=== PATIENT | male | born 1970 | race Caucasian/White ===

== ENCOUNTER 2017-08-26 20:49 | Observation (INO) | payer MEDICAID ==
[2017-08-26] MEDS ORDERED: ASPIRIN 81 MG CHEWABLE TABLET PO ONE (21:12)
[2017-08-26 21:16] LABS: BASO % 0.6 % (0-6); EOS % 5.5 % (0-6); GRAN % 61.9 % (47-80); HEMATOCRIT 43.2 % (42.0-52.0); HEMOGLOBIN 14.1 gm/dl (14.0-18.0); LYMPH % 23.4 % (16-45); MEAN CELL VOLUME 90.4 fl (81-97); MEAN CORPUSCULAR HEMOGLOBIN 29.5 pg (27-33); MEAN CORPUSCULAR HGB CONC 32.6 g/dl (32-36); MEAN PLATELET VOLUME 10.1 fl (7.4-10.4); MONO % 8.6 % (0-9); PLATELET COUNT 217 K/uL (130-400); RED BLOOD COUNT 4.78 M/uL (4.40-5.70); RED CELL DISTRIBUTION WIDTH 12.1 % (11.5-14.5); WHITE BLOOD COUNT W/O DIFF 5.3 K/uL (4.2-12.2)
[2017-08-26] MEDS: NITROGLYCERIN 0.4MG SL TABLET #25 BTL SL PRN ×3 (21:21→21:32)
[2017-08-26 21:26] LABS: ALB/GLOB RATIO 1.9 (1.1-1.8); ALBUMIN 4.1 g/dL (4.0-5.0); ALKALINE PHOSPHATASE 95 U/L (40-129); ALT/SGPT 17 U/L (<41); AST/SGOT 17 U/L (10.0-50.0); BLOOD UREA NITROGEN 15 mg/dL (6-20); CREATINE PHOSPHOKINASE 113 U/L (39-308); CREATININE 0.7 mg/dL (0.7-1.2); EST GLOMERULAR FILTRATION RATE > 60 mL/min; GLUCOSE,RANDOM 158 mg/dL (74-109); TOTAL PROTEIN 6.3 g/dL (6.6-8.7)
[2017-08-26 21:28] LABS: CKMB 2.3 ng/mL (<6.73)
[2017-08-26 21:43] LABS: URINE APPEARANCE CLEAR; URINE BILIRUBIN NEGATIVE (NEGATIVE); URINE BLOOD NEGATIVE (NEGATIVE); URINE COLOR YELLOW; URINE GLUCOSE (UA) NEGATIVE (NEGATIVE); URINE KETONE NEGATIVE (NEGATIVE); URINE LEUKOCYTE ESTERASE NEGATIVE (NEGATIVE); URINE NITRITE NEGATIVE (NEGATIVE); URINE PROTEIN NEGATIVE (NEGATIVE)
[2017-08-26 21:49] LABS: AMPHETAMINE SCREEN URINE NOT DETECTED; BARBITURATE SCREEN URINE NOT DETECTED; BENZODIAZEPINE SCREEN URINE NOT DETECTED; COCAINE SCREEN URINE NOT DETECTED; METHADONE SCREEN URINE NOT DETECTED; METHAMPHETAMINE SCREEN NOT DETECTED; OPIATE SCREEN URINE NOT DETECTED; OXYCODONE SCREEN URINE NOT DETECTED; PHENCYCLIDINE SCREEN URINE NOT DETECTED; PROPOXYPHENE SCREEN URINE NOT DETECTED; THC SCREEN URINE NOT DETECTED; TRICYCLIC ANTIDEPRESSANT SCRN NOT DETECTED
--- NOTE | 2017-08-26 22:34 | Emergency Department Record ---
History of Present Illness - General Chief Complaint: Chest Pain Stated Complaint: CHEST PAIN Time Seen by Provider: 08/26/17 20:54 Source: Patient Mode of Arrival: Ambulatory Limitations: No limitations - History of Present Illness Initial Comments: pt has been having intermittant cp for a few days. he had 3 hrs worth this am and 3 hrs tonight. tonight he became diaphoretic and had radiation of the pain to his l axilla. the pain gets better w rest and worse w exertion. he had a similar episode in may when he went to [place]. at that time he had elevated troponins and a heart cath. he was dxd w coronary artery spasms. he has htn, hi lipids and pos fam hx MD Complaint: Chest pain Onset/Timin -: Hour(s) Onset: During rest Pain Location: Left chest Severity: Moderate Severity scale (1-10): 6 Quality: Tightness Consistency: Constant Improves With: Rest Worsens With: Exertion Other Symptoms: Palpitations Treatments Prior to Arrival: Nitroglycerin - Related Data Allergies Allergy/AdvReac Type Severity Reaction Status Date / Time No Known Allergies Allergy Unverified 08/14/17 15:52 Travel Screening - Travel/Exposure Within Last 30 Days Have you traveled within the last 30 days?: No Review of Systems Reviewed: No additional complaints except as noted below Constitutional: Reports: As per HPI. Denies: Chills, Fever, Malaise, Night sweats, Weakness, Weight change Eyes: Reports: As per HPI. Denies: Eye discharge, Eye pain, Photophobia, Vision change ENT: Reports: As per HPI. Denies: Congestion, Dental pain, Ear pain, Epistaxis , Hearing loss, Throat pain Respiratory: Reports: As per HPI. Denies: Cough, Dyspnea, Hemoptysis, Stridor, Wheezes Cardiovascular: Reports: As per HPI, Chest pain, Palpitations. Denies: Arrhythmia, Dyspnea on exertion, Edema, Murmurs, Orthopnea, Paroxysmal nocturnal dyspnea, Rheumatic Fever, Syncope Endocrine: Reports: As per HPI. Denies: Fatigue, Heat or cold intolerance, Polydipsia, Polyuria Gastrointestinal: Reports: As per HPI. Denies: Abdominal pain, Constipation, Diarrhea, Hematemesis, Hematochezia, Melena, Nausea, Vomiting Genitourinary: Reports: As per HPI. Denies: Dysuria, Frequency, Hematuria, Incontinence, Retention, Testicular pain, Testicular mass, Urgency Musculoskeletal: Reports: As per HPI. Denies: Arthralgia, Back pain, Gout, Joint swelling, Myalgia, Neck pain Skin: Reports: As per HPI. Denies: Bruising, Change in color, Change in hair/ nails, Lesions, Pruritus, Rash Neurological: Reports: As per HPI. Denies: Abnormal gait, Confusion, Headache, Numbness, Paresthesias, Seizure, Tingling, Tremors, Vertigo, Weakness Psychiatric: Reports: As per HPI. Denies: Anxiety, Auditory hallucinations, Depression, Homicidal thoughts, Suicidal thoughts, Visual hallucinations Hematological/Lymphatic: Reports: As per HPI. Denies: Anemia, Blood Clots, Easy bleeding, Easy bruising, Swollen glands Past Medical History - SOCIAL HISTORY Smoking Status: Current every day smoker Alcohol Use: None Drug Use: None - RESPIRATORY Hx Respiratory Disorders: No - CARDIOVASCULAR Hx Cardio Disorders: Yes Hx Hypertension: Yes - NEURO Hx Neuro Disorders: Yes Hx Headaches: Yes (hx of migraines) - GI Hx GI Disorders: No - Hx Genitourinary Disorders: Yes Hx Kidney Stones: Yes (hx) - ENDOCRINE Hx Endocrine Disorders: No - MUSCULOSKELETAL Hx Musculoskeletal Disorders: No - PSYCH Hx Psych Problems: Yes Hx Anxiety: Yes Hx Depression: Yes - HEMATOLOGY/ONCOLOGY Hx Hematology/Oncology Disorders: No Family Medical History Any Significant Family History?: Yes Hx Cancer: Father, Mother Hx Diabetes: Father, Mother Hx Heart Disease: Mother Hx HTN: Father, Mother Physical Exam - General General Appearance: Alert, Oriented x3, Cooperative, Mild distress - Head Head exam: Normal inspection - Eye Eye exam: Normal appearance, PERRL, EOMI Pupils: Normal accommodation - ENT ENT exam: Normal exam, Mucous membranes moist, Normal external ear exam, Normal orophraynx Ear exam: Normal external inspection. negative: External canal tenderness Nasal Exam: Normal inspection. negative: Discharge, Sinus tenderness Mouth exam: Normal external inspection, Tongue normal Teeth exam: Normal inspection. negative: Dental caries Throat exam: Normal inspection. negative: Tonsillar erythema, Tonsillar exudate - Neck Neck exam: Normal inspection, Full ROM. negative: Tenderness - Respiratory Respiratory exam: Normal lung sounds bilaterally. negative: Respiratory distress - Cardiovascular Cardiovascular Exam: Regular rate, Normal rhythm, Normal heart sounds - GI/Abdominal GI/Abdominal exam: Soft, Normal bowel sounds. negative: Tenderness - Rectal Rectal exam: Deferred - exam: Deferred - Extremities Extremities exam: Normal inspection, Full ROM, Normal capillary refill. negative: Tenderness - Back Back exam: Reports: Normal inspection, Full ROM. Denies: Muscle spasm, Rash noted, Tenderness - Neurological Neurological exam: Alert, CN II-XII intact, Normal gait, Oriented X3 - Psychiatric Psychiatric exam: Normal affect, Normal mood - Skin Skin exam: Dry, Intact, Normal color, Warm Course Vital Signs 08/26/17 08/26/17 08/26/17 20:54 21:21 21:26 Temperature 98.3 F Pulse Rate 85 Pulse Rate [ 91 H 88 General Internist ] Respiratory 20 20 20 Rate Blood Pressure 143/83 Blood Pressure 138/81 128/101 [Right Arm] Pulse Ox 97 95 93 L 08/26/17 21:31 Temperature Pulse Rate Pulse Rate [ 91 H General Internist ] Respiratory 20 Rate Blood Pressure Blood Pressure 116/78 [Right Arm] Pulse Ox 94 L Medical Decision Making - Lab Data Result diagrams: 08/26/17 21:00 08/26/17 21:00 Lab Results 08/26/17 08/26/17 08/26/17 Range/Units 21:00 21:00 21:00 WBC 5.3 (4.2-12.2) K/uL RBC 4.78 (4.40-5.70) M/uL Hgb 14.1 (14.0-18.0) gm/dl Hct 43.2 (42.0-52.0) % MCV 90.4 (81-97) fl MCH 29.5 (27-33) pg MCHC 32.6 (32-36) g/dl RDW 12.1 (11.5-14.5) % Plt Count 217 (130-400) K/uL MPV 10.1 (7.4-10.4) fl Gran % 61.9 (47-80) % Lymphocytes % 23.4 (16-45) % Monocytes % 8.6 (0-9) % Eosinophils % 5.5 (0-6) % Basophils % 0.6 (0-6) % D-Dimer 0.21 (0-0.59) mg/L FEU Sodium 144 (136-145) mmol/L Potassium 3.6 (3.4-4.5) mmol/L Chloride 106 (98-107) mmol/L Carbon Dioxide 25.0 (22-29) mmol/L Anion Gap 13.0 (7-16) BUN 15 (6-20) mg/dL Creatinine 0.7 (0.7-1.2) mg/dL Estimated GFR > 60 mL/min Random Glucose 158 H (74-109) mg/dL Calcium 8.7 (8.6-10.0) mg/dL Total Bilirubin 0.20 (0.2-1.0) mg/dL AST 17 (10.0-50.0) U/L ALT 17 (<41) U/L Alkaline Phosphatase 95 (40-129) U/L Creatine Kinase 113 (39-308) U/L CK-MB (CK-2) 2.3 (<6.73) ng/mL Troponin T < 0.010 (0-0.010) ng/mL Total Protein 6.3 L (6.6-8.7) g/dL Albumin 4.1 (4.0-5.0) g/dL Globulin 2.2 (1.4-4.8) gm/dL Albumin/Globulin Ratio 1.9 H (1.1-1.8) Urine Color Urine Appearance Urine pH (5.0-8.0) Ur Specific [place] (1.002-1.030) Urine Protein (NEGATIVE) Urine Glucose (UA) (NEGATIVE) Urine Ketones (NEGATIVE) Urine Blood (NEGATIVE) Urine Nitrite (NEGATIVE) Urine Bilirubin (NEGATIVE) Urine Urobilinogen (0.20 - 1.00) E.U./dL Ur Leukocyte Esterase (NEGATIVE) Urine Opiates Screen Ur Oxycodone Screen Urine Methadone Screen Ur Propoxyphene Screen Ur Barbituates Screen Ur Tricyclics Screen Ur Phencyclidine Scrn Ur Amphetamine Screen U Methamphetamines Scrn U Benzodiazepines Scrn Urine Cocaine Screen Urine Cannabis Screen 08/26/17 08/26/17 Range/Units 21:45 21:49 WBC (4.2-12.2) K/uL RBC (4.40-5.70) M/uL Hgb (14.0-18.0) gm/dl Hct (42.0-52.0) % MCV (81-97) fl MCH (27-33) pg MCHC (32-36) g/dl RDW (11.5-14.5) % Plt Count (130-400) K/uL MPV (7.4-10.4) fl Gran % (47-80) % Lymphocytes % (16-45) % Monocytes % (0-9) % Eosinophils % (0-6) % Basophils % (0-6) % D-Dimer (0-0.59) mg/L FEU Sodium (136-145) mmol/L Potassium (3.4-4.5) mmol/L Chloride (98-107) mmol/L Carbon Dioxide (22-29) mmol/L Anion Gap (7-16) BUN (6-20) mg/dL Creatinine (0.7-1.2) mg/dL Estimated GFR mL/min Random Glucose (74-109) mg/dL Calcium (8.6-10.0) mg/dL Total Bilirubin (0.2-1.0) mg/dL AST (10.0-50.0) U/L ALT (<41) U/L Alkaline Phosphatase (40-129) U/L Creatine Kinase (39-308) U/L CK-MB (CK-2) (<6.73) ng/mL Troponin T (0-0.010) ng/mL Total Protein (6.6-8.7) g/dL Albumin (4.0-5.0) g/dL Globulin (1.4-4.8) gm/dL Albumin/Globulin Ratio (1.1-1.8) Urine Color Yellow Urine Appearance Clear Urine pH 7.0 (5.0-8.0) Ur Specific [place] 1.020 (1.002-1.030) Urine Protein Negative (NEGATIVE) Urine Glucose (UA) Negative (NEGATIVE) Urine Ketones Negative (NEGATIVE) Urine Blood Negative (NEGATIVE) Urine Nitrite Negative (NEGATIVE) Urine Bilirubin Negative (NEGATIVE) Urine Urobilinogen 1.0 (0.20 - 1.00) E.U./dL Ur Leukocyte Esterase Negative (NEGATIVE) Urine Opiates Screen Not detected Ur Oxycodone Screen Not detected Urine Methadone Screen Not detected Ur Propoxyphene Screen Not detected Ur Barbituates Screen Not detected Ur Tricyclics Screen Not detected Ur Phencyclidine Scrn Not detected Ur Amphetamine Screen Not detected U Methamphetamines Scrn Not detected U Benzodiazepines Scrn Not detected Urine Cocaine Screen Not detected Urine Cannabis Screen Not detected Disposition Disposition: Admit Clinical Impression: Chest pain Qualifiers: Chest pain type: unspecified Qualified Code(s): R07.9 - Chest pain, unspecified Disposition: Still a Patient at [facility] Decision to Admit: Admit from ER Decision to Admit Date: 08/26/17 Decision to Admit Time: 22:38 Quality - Quality Measures Quality Measures: N/A - Blood Pressure Screening Does Patient Have Any of the Following: No Blood Pressure Classification: Pre-Hypertensive BP Reading Systolic Measurement: 143 Diastolic Measurement: 83 Screening for High Blood Pressure: < Pre-Hypertensive BP, F/U Documented > [ [id number]] Pre-Hypertensive Follow-up Interventions: Follow-up with rescreen every year.
[2017-08-26 23:13] LABS: VALPROIC ACID (DEPAKENE) 13.8 ug/mL (50.0-100.0)
[2017-08-26] MEDS ORDERED: ACETAMINOPHEN 500 MG TABLET PO PRN (23:40)
[2017-08-26] MEDS ORDERED: TEMAZEPAM 15 MG CAPSULE PO PRN (23:40)
[2017-08-26] MEDS ORDERED: ISOSORBIDE MONONITRATE 30 MG TAB.ER.24H PO SCH (23:40)
[2017-08-26] MEDS ORDERED: NITROGLYCERIN 0.4MG SL TABLET #25 BTL SL PRN (23:40)
[2017-08-27] MEDS ORDERED: ATORVASTATIN 20 MG TABLET PO SCH
[2017-08-27] MEDS ORDERED: GABAPENTIN 300 MG CAPSULE PO SCH
[2017-08-27] MEDS ORDERED: DIVALPROEX SODIUM 250 MG TAB.ER.24H PO SCH ×2 (00:45→10:00)
--- NOTE | 2017-08-27 07:28 | RADIOLOGY REPORT ---
EXAM: CHEST, TWO VIEWS HISTORY: DIFFICULTY IN BREATHING. TECHNIQUE: Frontal and lateral views of the chest were performed. FINDINGS: The heart size is normal. No pulmonary vascular congestion. No infiltrate or pleural effusion. The osseous structures are normal. IMPRESSION: NO ACUTE DISEASE PROCESS. JOB NUMBER: [id number] MTDD
[2017-08-27] MEDS ORDERED: BUSPIRONE 5 MG TABLET PO SCH (10:00)
[2017-08-27] MEDS ORDERED: PAROXETINE HCL 10 MG TABLET PO SCH (10:00)
[2017-08-27] MEDS ORDERED: TERBINAFINE HCL TP SCH (10:00)
[2017-08-27] MEDS ORDERED: ISOSORBIDE MONONITRATE 30 MG TAB.ER.24H PO SCH (10:00)
[2017-08-27] MEDS ORDERED: ASPIRIN 325 MG TAB ENTERIC-COATED PO SCH (10:00)
--- NOTE | 2017-08-27 10:27 | Discharge Note ---
VTE H&P Assessment - Risk for VTE Risk for VTE: No Risk Level: Very Low Risk Assessment Date: 08/27/17 Risk Assessment Time: 10:22 VTE Orders Placed or Will Be Placed: No VTE Reason for No Prophylaxis: Not Indicated Discharge Medications - Discharge Medications Prescriptions: Naproxen [Naprosyn] 500 mg PO BID #20 tablet Home Medications: Ambulatory Orders Asprin 81 mg PO DAILY 30 Days #30 06/06/17 [Last Taken Unknown] Atorvastatin Calcium 40 mg PO QD #30 tab 06/06/17 [Last Taken Unknown] Isosorbide Mononitrate [Isosorbide Mononitrate ER] 30 mg PO QD #30 tab 06/06/17 [Last Taken Unknown] Nitroglycerin 0.4 mg SL EVERY 5 MIN NEED #100 tab 06/06/17 [Last Taken Unknown] Naproxen [Naprosyn] 500 mg PO BID #20 tablet 08/27/17 [Last Taken Unknown] Discharge Note - Date Date of Discharge Note: 08/27/17 Condition: (1) Good Additional Instructions: follow up with insurance sales associate Dr. Renteria in 1-2 weeks follow up with Dr. Molina in one to two weeks use naprosyn twice a day please schedule outpatient exercise stress test at [facility] in the next week Referrals: MARVIN MOLINA [Primary Care Provider] - Activity at Discharge: Increase Activity as Tolerated
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
--- NOTE | 2017-08-27 21:02 | Medical Records Consult ---
DATE OF CONSULTATION: 08/27/17 HISTORY OF PRESENT ILLNESS: I was asked to see Mr. Santacruz for evaluation of chest pain. He is a 47-year-old male who has been having chest pain intermittently for the last few days. It got worse yesterday. He came into the Emergency Room and was admitted. Ostensibly, the discomfort was relieved by nitroglycerine. He was short of breath with radiation of the pain into the left axilla. This morning, his pain is gone. He is back to his normal self. EKG is normal, enzymes are negative for myocardial infarction. He tells me he was in the hospital at [facility] in May of this year and had a heart cath by Dr. Renteria and it sounds like the heart cath was normal, although there was some suggestion he might be having "spasm" of the coronaries. He was discharged on medical treatment. He says he saw Dr. Renteria in follow-up subsequently but there is no office record of that in [facility]. He denies any PND or orthopnea. He denies any presyncope or syncope. Unfortunately, he does smoke cigarettes. He denies any other significant medical problems. PAST MEDICAL HISTORY: Described in HPI. SOCIAL HISTORY: Current smoker. Does not use alcohol. ADMISSION MEDICATIONS: 325 mg Aspirin a day Atorvastatin 40 mg every h.s. Isosorbide Mononitrate 30 mg a day Nitroglycerine p.r.n. Paxil 20 mg a day BuSpar 15 mg b.i.d. REVIEW OF SYSTEMS: 10-point review of systems reviewed and confirmed. Pertinent positive in HPI. Otherwise, negative. FAMILY HISTORY: Significant for cancer, diabetes, heart disease, hypertension. PHYSICAL EXAMINATION: GENERAL: White male in no acute distress. Vital Signs: Blood pressure is 120/68. Pulse is 85. HEENT: Normocephalic, atraumatic. Lids, conjunctiva, sclera are clear. Pupils are equal, round, and reactive to light and accommodation. EOM's are intact. Buccal mucosa is pink and moist. Uvula is up on retraction. NECK: Supple. No thyromegaly, lymphadenopathy, or carotid bruits are noted. CHEST: Clear to auscultation and percussion. CARDIOVASCULAR: Regular. No gallops, lifts, heaves are noted. ABDOMEN: Soft. Nontender. EXTREMITIES: Warm, dry. Pulses are intact. EKG is normal. Enzymes are negative. IMPRESSION: 1. ATYPICAL CHEST PAIN. 2. NICOTINE USE. 3. REPORTED NORMAL CATHETERIZATION. PLAN: The patient can be discharge don his pre-admission medications. He can have an outpatient treadmill test with follow-up after that, particularly if it is abnormal. We'll try to track down his inpatient records to confirm that his heart catheterization was normal. I discussed this with Dr. Khalil, the attending physician. ADDENDUM: I was able to track down the discharge summary from hospitalization in May of this year. He actually was taken care of by Dr. Gutierrez and indeed did have a cath that showed normal coronaries. He apparently had a mild elevation in his troponin. 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 I suspect he followed up with Dr. Gutierrez in his office and not our office, since we don't have any office records. Recommendation remains the same. JOB NUMBER: [id number], [id number] [facility]
== END 2017-08-27 11:21 | disposition home or self-care (01) ==
LOC: ER 20:49 → MEDSURG 22:48
PROVIDERS: ADMIT Emergency Medicine; ATTEND Emergency Medicine
DX: R07.89 Other chest pain (principal); R07.1 Chest pain on breathing; I10 Essential (primary) hypertension; E78.00 Pure hypercholesterolemia, unspecified; G25.81 Restless legs syndrome; F17.210 Nicotine dependence, cigarettes, uncomplicated; I20.1 Angina pectoris with documented spasm; R41.3 Other amnesia; Z87.820 Personal history of traumatic brain injury; Z87.442 Personal history of urinary calculi
CPT/HCPCS: 99285 ×2; 82550; 85025; 82553 ×2; 80053; 81003; 80305; 84484 ×2; 80164; 85379; 71046; 93005 ×2; 93010; G0378 ×2; 99220

== ENCOUNTER 2017-11-28 12:56 | Emergency (ER) | payer MEDICAID ==
[2017-11-28] MEDS ORDERED: ASPIRIN 81 MG CHEWABLE TABLET PO ONE (13:05)
--- NOTE | 2017-11-28 13:10 | Emergency Department Record ---
History of Present Illness - General Chief Complaint: Chest Pain Stated Complaint: CHEST PAIN Time Seen by Provider: 11/28/17 13:04 Source: Patient - History of Present Illness Initial Comments: The patient reports that he has had substernal an left anterior chest pain since around 1130 which does not radiate. He was nauseated and short of breath prior to arrival but not currently. He took his fresh nitro times three with no relief. His last Aspirin was 82 mg last evening. He currently has a severity of 7/10. He states he sees [facility] Dr. Sosa and has been told he has coronary "spasms." Risks include 1/2PPD smoker, htn, cholesterol elevation, and FH of Dad cardiac at 54 years of age. He is not a diabetic. - Related Data Previous Rx's Medication Instructions Recorded Naproxen [Naprosyn] 500 mg PO BID #20 tablet 08/27/17 Amlodipine Besylate 2.5 mg PO DAILY #20 tab 11/28/17 Allergies Allergy/AdvReac Type Severity Reaction Status Date / Time No Known Allergies Allergy Unverified 08/14/17 15:52 Review of Systems Reviewed: No additional complaints except as noted below Constitutional: Reports: As per HPI. Denies: Chills, Fever, Malaise, Night sweats, Weakness, Weight change Eyes: Reports: As per HPI. Denies: Eye discharge, Eye pain, Photophobia, Vision change ENT: Reports: As per HPI. Denies: Congestion, Dental pain, Ear pain, Epistaxis , Hearing loss, Throat pain Respiratory: Reports: As per HPI. Denies: Cough, Dyspnea, Hemoptysis, Stridor, Wheezes Cardiovascular: Reports: As per HPI. Denies: Arrhythmia, Chest pain, Dyspnea on exertion, Edema, Murmurs, Orthopnea, Palpitations, Paroxysmal nocturnal dyspnea, Rheumatic Fever, Syncope Endocrine: Reports: As per HPI. Denies: Fatigue, Heat or cold intolerance, Polydipsia, Polyuria Gastrointestinal: Reports: As per HPI. Denies: Abdominal pain, Constipation, Diarrhea, Hematemesis, Hematochezia, Melena, Nausea, Vomiting Genitourinary: Reports: As per HPI. Denies: Dysuria, Frequency, Hematuria, Incontinence, Retention, Testicular pain, Testicular mass, Urgency Musculoskeletal: Reports: As per HPI. Denies: Arthralgia, Back pain, Gout, Joint swelling, Myalgia, Neck pain Skin: Reports: As per HPI. Denies: Bruising, Change in color, Change in hair/ nails, Lesions, Pruritus, Rash Neurological: Reports: As per HPI. Denies: Abnormal gait, Confusion, Headache, Numbness, Paresthesias, Seizure, Tingling, Tremors, Vertigo, Weakness Psychiatric: Reports: As per HPI. Denies: Anxiety, Auditory hallucinations, Depression, Homicidal thoughts, Suicidal thoughts, Visual hallucinations Hematological/Lymphatic: Reports: As per HPI. Denies: Anemia, Blood Clots, Easy bleeding, Easy bruising, Swollen glands Past Medical History - SOCIAL HISTORY Smoking Status: Current every day smoker Drug Use: None - RESPIRATORY Hx Respiratory Disorders: No - CARDIOVASCULAR Hx Cardio Disorders: Yes Hx Abnormal EKG: No Hx Cardiac Cath: Yes Hx Chest Pain: Yes Hx CHF: No Hx Deep Vein Thrombosis: No Hx Edema: No Hx Heart Attack: No Hx Hypertension: Yes Hx Hypotension: No Hx Irregular Heartbeat: Yes Hx Palpitations: No Hx Pacemaker/Defib: No Hx Vascular Disease: No - NEURO Hx Neuro Disorders: Yes Hx Brain Tumor: No Hx CVA: No Hx Dementia: No Hx Dizziness: No Hx Headaches: Yes (hx of migraines) Hx Neuropathy: No Hx Parkinson's Disease: No Hx Seizures: No Hx Speech Problem: No Hx TIA: No - GI Hx GI Disorders: No - Hx Genitourinary Disorders: Yes Hx Bladder Problem: No Hx Dialysis: No Hx Kidney Stones: Yes (hx) Hx Prostate Problems: No Hx Renal Disease: No Hx UTI: No - ENDOCRINE Hx Endocrine Disorders: No Hx Diabetes: No Hx Thyroid Disease: No - MUSCULOSKELETAL Hx Musculoskeletal Disorders: No Hx Arthritis: No Hx Back Injury: No Hx Fibromyalgia: No Hx Gout: No Hx Musculoskeletal Disease: No Hx Osteoporosis: No - PSYCH Hx Psych Problems: Yes Hx Anxiety: Yes Hx Behavior Problems: No Hx Depression: Yes Hx Emotional Abuse: No Hx Sexual Abuse: No Hx Suicide Attempt: No - HEMATOLOGY/ONCOLOGY Hx Hematology/Oncology Disorders: No Family Medical History Any Significant Family History?: Yes Hx Cancer: Father, Mother, Grandparents Hx Dementia: Mother Hx Depression: Father Hx Diabetes: Mother, Brother/Sister, Grandparents Hx Heart Disease: Mother Hx HTN: Father, Mother, Grandparents Hx Kidney Disease: Father Physical Exam - General General Appearance: Alert, Oriented x3, Cooperative, Mild distress, Anxious ( slightly) - Head Head exam: Normal inspection - Eye Eye exam: Normal appearance, PERRL Pupils: Normal accommodation - ENT ENT exam: Normal exam, Mucous membranes moist, Normal external ear exam, Normal orophraynx, TM's normal bilaterally Ear exam: Normal external inspection. negative: External canal tenderness Nasal Exam: Normal inspection. negative: Discharge, Sinus tenderness Mouth exam: Normal external inspection, Tongue normal Teeth exam: Normal inspection. negative: Dental caries Throat exam: Normal inspection. negative: Tonsillar erythema, Tonsillar exudate - Neck Neck exam: Normal inspection, Full ROM. negative: Lymphadenopathy, Meningismus , Tenderness - Respiratory Respiratory exam: Normal lung sounds bilaterally, Chest wall tenderness ( sternal and left of sternal tenderness on palpation). negative: Respiratory distress - Cardiovascular Cardiovascular Exam: Regular rate, Normal rhythm, Normal heart sounds - GI/Abdominal GI/Abdominal exam: Soft. negative: Tenderness - Rectal Rectal exam: Deferred - exam: Deferred - Extremities Extremities exam: Normal inspection, Full ROM, Normal capillary refill. negative: Calf tenderness, Pedal edema, Tenderness - Back Back exam: Reports: Normal inspection, Full ROM. Denies: Muscle spasm, Rash noted, Tenderness - Neurological Neurological exam: Alert, CN II-XII intact, Normal gait, Oriented X3, Reflexes normal. negative: Motor sensory deficit - Psychiatric Psychiatric exam: Normal affect, Normal mood - Skin Skin exam: Dry, Intact, Normal color, Warm. negative: Diaphoretic Course - Reevaluation(s) Reevaluation #1: 11/28/17 14:16 Patient currently is symptom, free. He is being taken to xray for a CXR. All labs returned normal. Patient informed and aware we will speak with [facility] cardiology. Reevaluation #2: Discussed case with Dr. Rausch for [facility] who has reviewed patient's chart and recent heart cath. He requests he be placed on 2.5 amylodipine daily and follow up with [facility] as they arranged. Patient is to hae a repeat troponin and be discharged IF it is not rising. Patient aware and in agreement. 11/28/17 15:09 11/28/17 17:39 Reevaluation #3: Discussed CXR results of bilateral patchy infiltrates with patient. He states that he is homosexual. He denies any productive cough or shortness of breath. He was informed of the possibility of PCP pneumonia and told to follow up with his PCP Dr. Browning. He states he has not had any HIV testing for several years. He has an appointment next Friday already with his PCP and will request an HIV test at that time. If he develops SOB before then he is to return to [facility]. In view of no symptoms, will no treat for pneumonia or PCP. 11/28/17 16:11 11/28/17 17:38 11/28/17 17:38 Medical Decision Making - Data Complexity MDM Data: Labs Ordered and/or Reviewed, X-Ray Ordered and/or Reviewed (CXR: Patchy infiltrastes noted per radiologsit.), EKG Ordered and/or Reviewed, Independent Visualization of Image, Tracing, or Specimen (Stress test from shows "1.Negative exercise stress test to approx. 9 mets. 2. No chest discomfort 3. Hypertension at rest 4. Rare PVC during exercise. per Dr. Casas.") , Discussion of Test Results With Performing Physician - Lab Data Result diagrams: 11/28/17 13:06 11/28/17 13:06 - EKG Data -: EKG Interpreted by [facility] EKG: Abnormal EKG (NSR at 89; trace ST elevation NOT NEW anterior leads and lead II compared with 08-27-17) Disposition Disposition: Discharge Clinical Impression: Chest pain Qualifiers: Chest pain type: unspecified Qualified Code(s): R07.9 - Chest pain, unspecified Disposition: Home, Self-Care Condition: (1) Good Instructions: Chest Pain (ED) Additional Instructions: Continue present medications. Fill prescription and take amlodipine 2.5 mg daily as instructed by Dr. Rausch. Follow up with [facility] cardiology in office as instructed per Dr. Rausch. Obtain HIV testing and recheck through your PCP this Friday. Prescriptions: Amlodipine Besylate 2.5 mg PO DAILY #20 tab Forms: Patient Portal Access Quality - Quality Measures Quality Measures: N/A - Blood Pressure Screening Does Patient Have Any of the Following: No Blood Pressure Classification: Hypertensive Reading Systolic Measurement: 131 Diastolic Measurement: 90 Screening for High Blood Pressure: Patient Exclusion, Hx of HTN [[id number]]
[2017-11-28 13:14] LABS: BASO % 0.5 % (0-6); EOS % 4.2 % (0-6); GRAN % 68.2 % (47-80); HEMATOCRIT 46.2 % (42.0-52.0); HEMOGLOBIN 15.4 gm/dl (14.0-18.0); MEAN CELL VOLUME 89.9 fl (81-97); MEAN CORPUSCULAR HGB CONC 33.3 g/dl (32-36); MEAN PLATELET VOLUME 10.5 fl (7.4-10.4); MONO % 6.1 % (0-9); PLATELET COUNT 219 K/uL (130-400); RED BLOOD COUNT 5.14 M/uL (4.40-5.70); RED CELL DISTRIBUTION WIDTH 12.2 % (11.5-14.5); WHITE BLOOD COUNT W/O DIFF 5.8 K/uL (4.2-12.2)
[2017-11-28] MEDS: NITROGLYCERIN 0.4MG SL TABLET #25 BTL SL PRN ×2 (13:19→13:27)
[2017-11-28 13:25] LABS: BLOOD UREA NITROGEN 15 mg/dL (6-20); CREATININE 0.9 mg/dL (0.7-1.2); EST GLOMERULAR FILTRATION RATE > 60 mL/min
[2017-11-28 13:28] LABS: GLUCOSE,RANDOM 115 mg/dL (74-109)
[2017-11-28 13:30] LABS: PARTIAL THROMBOPLASTIN TIME 37.4 SECONDS (24.5-39.1); PROTHROMBIN TIME (PATIENT) 10.7 SECONDS (9.5-12.1)
[2017-11-28 13:31] LABS: ALB/GLOB RATIO 1.8 (1.1-1.8); ALBUMIN 4.5 g/dL (4.0-5.0); ALKALINE PHOSPHATASE 111 U/L (40-129); ALT/SGPT 19 U/L (<41); AST/SGOT 17 U/L (10.0-50.0)
[2017-11-28 13:41] LABS: THYROID STIMULATING HORMONE 0.66 uIU/mL (0.270-4.20)
[2017-11-28] MEDS ORDERED: AMLODIPINE BESYLATE 5MG TAB PO STA (15:09)
[2017-11-28] MEDS ORDERED: AMLODIPINE BESYLATE 5MG TAB PO SCH (15:15)
[2017-11-28 17:53] LABS: CKMB < 1.0 ng/mL (<6.73)
--- NOTE | 2017-11-29 08:04 | RADIOLOGY REPORT ---
EXAM: CHEST 2 VIEWS HISTORY: DIFFICULTY IN BREATHING. TECHNIQUE: Frontal and lateral views of the chest were performed. COMPARISON: 08/26/2017 FINDINGS: Heart size normal. Patchy infiltrates. No infiltrate or pleural effusion. The osseous structures are normal. IMPRESSION: 1. NO ACUTE DISEASE PROCESS. 2. PATCHY INFILTRATES THROUGHOUT BOTH LUNG AGUAYO. JOB NUMBER: [id number] MTDD
== END 2017-11-28 18:21 | disposition home or self-care (01) ==
LOC: ER 12:56 → EDBD 12:56 → ER 18:21
DX: R07.9 Chest pain, unspecified (principal); I10 Essential (primary) hypertension; F17.210 Nicotine dependence, cigarettes, uncomplicated; E78.00 Pure hypercholesterolemia, unspecified
CPT/HCPCS: 71046; 80053; 82553; 84443; 84484; 85025; 85379; 85610; 85651; 85730; 93005; 93010; 93041; 99284